=== PATIENT | female | born 1980 | race African-American/Black ===

== ENCOUNTER → 2016-12-27 | Outpatient (CLI) | payer OTHER ==
[~2016-12-27] MED LIST: PREN1CHW7 PO; TERC.4%V VAGINAL
== END ==
LOC: HPND 09:02
PROVIDERS: ATTEND Obstetrics & Gynecology
DX: O09.522 Supervision of elderly multigravida, second trimester (principal); O99.212 Obesity complicating pregnancy, second trimester; Z3A.18 18 weeks gestation of pregnancy
CPT/HCPCS: 76811

== ENCOUNTER → 2017-01-24 | Outpatient (CLI) | payer OTHER | LOC: HPND 11:03 | PROVIDERS: ATTEND Obstetrics & Gynecology | DX: O34.12 Maternal care for benign tumor of corpus uteri, second trimester (principal) | CPT/HCPCS: 76816 ==

== ENCOUNTER → 2017-03-07 | Outpatient (CLI) | payer OTHER ==
[~2017-03-07] MED LIST changes: +BAYEMIS; +GLUCTES27; +ONETOUCH ULTRAULTRA; +ONETTES4; -TERC.4%V VAGINAL
== END ==
LOC: HPND 08:42
PROVIDERS: ATTEND Obstetrics & Gynecology
DX: O34.12 Maternal care for benign tumor of corpus uteri, second trimester (principal)
CPT/HCPCS: 76816

== ENCOUNTER → 2017-04-04 | Outpatient (CLI) | payer OTHER ==
[~2017-04-04] MED LIST changes: +IBUP-232 PO; +MACR100C2 PO
== END ==
LOC: HPND 08:49
PROVIDERS: ATTEND Obstetrics & Gynecology
DX: O09.522 Supervision of elderly multigravida, second trimester (principal); O34.12 Maternal care for benign tumor of corpus uteri, second trimester; O40.2XX0 Polyhydramnios, second trimester, not applicable or unspecified
CPT/HCPCS: 76816

== ENCOUNTER 2017-04-13 06:02 | Emergency (ER) | payer OTHER ==
[~2017-04-13 06:02] MED LIST changes: -IBUP-232 PO; -MACR100C2 PO
[2017-04-13] MEDS ORDERED: LACTATED RINGER'S 1000 ML INJ 1,000 ML IV SCH (06:50)
[2017-04-13 07:00] VITALS: RESP 18
[2017-04-13] MEDS ORDERED: TERBUTALINE INJ 1 MG/ML AMP SQ PRN (07:00)
--- NOTE | 2017-04-13 07:00 | PD ---
HPI Chief Complaint Patient is a 36-year-old white female complaints of abdominal tightening and cramping pain began in the last few hours Date Seen: Apr 13, 2017 Time Seen: 06:45 Travel History International Travel<30 Days: No Contact w/Intl Traveler<30Days: No Known Affected Area: No History of Present Illness HPI 36-year-old black female G for P1 34 weeks tomorrow and [facility] and complains of abdominal tightening abdominal pain over the last few hours. Denies bleeding or leakage of fluid. heart rate tracing is reactive. Contractions seen every 5-8 minutes. Weeks Gestation: 34 Para: 1 : 4 Miscarriage: 2 History Obstetric History Obstetric History 1 vaginal delivery 2 early ABs Social History Alcohol Use: No Tobacco Use: No Substance Abuse: No Allergies-Medications (Allergen,Severity, Reaction): Coded Allergies: No Known Allergies (Unverified , 04/11/17) Home Meds Active Scripts Mey Microlet Lancets (Mey Microlet Lancets) 1 Mis Mis, 1 EA .ROUTE QID for Blood Sugar Management, #100 BOX 4 Refills Prov:Gianna Lopez 03/09/17 Glucose Blood Test Strips (Mey Contour Next Blood Test Strips) 1 Adrianna Adrianna, 1 STRIP .ROUTE QID for Blood Sugar Management, #100 STRIP 6 Refills Prov:Gianna Lopez 03/09/17 Onetouch Ultra System Kit (Onetouch Ultra System Kit) 1 Kit, 1 KIT .ROUTE DIRECTED for Blood Sugar Management, #1 KIT 0 Refills Prov:Gaby Tran 03/08/17 Onetouch Ultra Test Strips (Onetouch Ultra Test Strips) 1 Adrianna Adrianna, 1 STRIP .ROUTE DIRECTED for Blood Sugar Management, #1 BOX 0 Refills Prov:Gaby Tran 03/08/17 Vit W/ Ferric Phospha (Vitafol Gummies 3.33-0.333-34.8 mg) 1 Chw Chw, 3 TAB PO DAILY, #90 BOTTLE 11 Refills Prov:Gianna Lopez 11/30/16 Review of Systems General / Constitutional: No: Fever, Weight Gain, Chills, Other Eyes: No: Diploplia, Blurred Vision, Visual changes, Pain, Photophobia HENT: No: Headaches, Vertigo, Lightheadedness Cardiovascular: No: Irregular Rhythm, Chest Pain or Discomfort, Palpitations, Tachycardia, Syncope, Varicosities, Edema, Cyanosis Respiratory: No: Cough, Short of Breath, Other Gastrointestinal: Abdominal Pain, No: Nausea, Vomiting, Diarrhea Genitourinary: No: Decreased Urinary Output, Oliguria Musculoskeletal: No: Limited ROM, Weakness, Cramping, Edema, Pain Skin: No Rash, No Itching, No Dryness, No Lumps, No Change in Pigmentation, No Change in Nails, No Alopecia, No Lesions Neurologic: No: Weakness, Dizziness, Syncope, Focal Abnormalities, Coordination Problem, Headache, Slurred Speech, Seizures Psychiatric: No: Depression, Suicidal Ideations, Homicidal Ideation Endocrine: No: Heat Intolerance, Cold Intolerance, Polydipsia, Polyuria, Other Physical Exam Narrative GENERAL: Well-nourished, well-developed patient. SKIN: Warm and dry. HEAD: Normocephalic and atraumatic. EYES: No scleral icterus. No injection or drainage. ENT: No nasal drainage noted. Mucous membranes pink. Airway patent. NECK: Supple, trachea midline. No JVD. CARDIOVASCULAR: Regular rate and rhythm without murmurs, gallops, or rubs. RESPIRATORY: Breath sounds equal bilaterally. No accessory muscle use. BREASTS: Bilateral exam showed no masses , no retractions, no nipple discharge. ABDOMEN/GI: Abdomen soft, non-tender, bowel sounds present, no rebound, no guarding Gravid to [-34] weeks size Fundal Height: [34-] GENITOURINARY: External Genitalia: intact and normal in appearance BUS glands: [-] Cervix: [-Posterior] Dilatation: [Closed-] Effacement: [-] Thick Station: [-3] Membranes: [intact ] Uterine Contractions: [Every 5-8 minutes-] FHT's: Category: [1-] Baseline: [-133] Reactive: [-yes] Variability: [mod-] Decels: [none-] EXTREMITIES: No cyanosis or edema. BACK: Nontender without obvious deformity. No CVA tenderness. NEUROLOGICAL: Awake and alert. Motor and sensory grossly within normal limits. Five out of 5 muscle strength in all muscle groups. Normal speech. Data Data Orders Orders Vital Signs (Adult) .ON ADMISSION (04/13/17 06:50) ^ Labor Status (04/13/17 06:50) Urinalysis - C+S If Indicated (04/13/17 06:50) Lactated Ringer's 1000 Ml Inj (Lr 1000 M (04/13/17 06:50) Terbutaline Inj (Brethine Inj) (04/13/17 07:00) Fentanyl Inj (Fentanyl Inj) (04/13/17 07:00) Labs Urine dip shows large leukocyte esterase trace blood MDM Interpretation(s) Patient is 36-year-old white female at 34 weeks tomorrow [facility]. She presents complaining of abdominal pain and abdominal tightening over the last few hours. No leakage of fluid or bleeding. The contractions are seen on the monitor every 5-8 minutes. Because of seeing contractions we will IV hydrate subcutaneous terbutaline as needed per protocol and IV fentanyl 50 g. Patient's cervix is closed thick and high posterior;. urine dipstick positive for large leukocyte esterase and trace blood. Urine from lab downstairs pending at this time will probably confirm UTI and plan to treat with by mouth Macrobid for this patient Plan Plan for patient to be discharged on the increased oral fluids for hydration, Tylenol liberally for discomfort, heating pad or hot bath for symptomatic relief. Bedrest over the next 48 hours to decrease the risk of uterine activity. By mouth Macrobid for UTI Diagnosis Diagnosis: Primary Impression: UTI (urinary tract infection) in in third trimester Additional Impression: Uterine contractions during Disposition: 01 DISCHARGE HOME Condition: Stable Scripts Nitrofurantoin Monohydrate Macrocrystals (Macrobid) 100 Mg Capsule 100 MG PO BID for Infection for 7 Days, #14 CAP 0 Refills Prov: Walker Fragoso II, MD 04/13/17 Walker Fragoso II, MD Apr 13, 2017 07:00
[2017-04-13 07:41] VITALS: BP 104/55; PULSE 97
[2017-04-13] MEDS ORDERED: MACR100C2 PO (07:52)
[2017-04-13 08:17] LABS: BACTERIA, URINE OCC /hpf; BLOOD, URINE NEG (NEG); COMMENT (UR) CULTURE INDICATED; CULTURE IF INDICATED CULTURE INDICATED; GLUCOSE,URINE NEG (NEG); KETONE, URINE TRACE mg/dL (NEG); NITRITE,URINE NEG (NEG); PH, URINE 6.5 (5.0-8.5); SQUAMOUS EPITHELIAL CELL URINE 4 /hpf (0-5); URINE COLOR LIGHT-YELLOW (YELLW/STRAW)
[2017-05-05] MEDS ORDERED: ONETTES4 ×2 (13:14→13:17)
[2017-05-05] MEDS ORDERED: BAYEMIS ×2 (13:15→13:16)
== END 2017-04-13 09:30 | disposition home or self-care (01) ==
LOC: HOBED 06:02
DX: O23.43 Unspecified infection of urinary tract in pregnancy, third trimester (principal); O62.9 Abnormality of forces of labor, unspecified; Z3A.34 34 weeks gestation of pregnancy
CPT/HCPCS: 59025; 81001; 87086; 96372; 96374; 99284; J3010; J3105

== ENCOUNTER → 2017-05-02 | Outpatient (CLI) | payer OTHER ==
[~2017-05-02] MED LIST changes: +IBUP-232 PO
== END ==
LOC: HPND 08:47
PROVIDERS: ATTEND Obstetrics & Gynecology
DX: O09.523 Supervision of elderly multigravida, third trimester (principal); O34.13 Maternal care for benign tumor of corpus uteri, third trimester; Z3A.36 36 weeks gestation of pregnancy
CPT/HCPCS: 76816; 76818

== ENCOUNTER 2017-05-16 10:00 | Emergency (ER) | payer OTHER ==
[~2017-05-16 10:00] MED LIST changes: -IBUP-232 PO
--- NOTE | 2017-05-16 11:31 | PD ---
HPI Chief Complaint vaginal discharge Travel History International Travel<30 Days: No Contact w/Intl Traveler<30Days: No History of Present Illness HPI 37 y/o @38/2 weeks who presents with vaginal fluid/discharge for the past couple days. Believes she lost her mucous plug on or Monday of last week. Has endorsed some leakage of white fluid since then. Endorses back pain and lower abdominal cramping occurring irregularly. Has felt decreased movement over the past couple days as well. Coming from [facility] today where she had a BPP. Score was 8 out of 10, NST reactive, BERT 19. Patient was diagnosed with gestational diabetes mellitus based on an A1c of 6.4. Has been monitoring her blood glucose with daily logs (range from 100-140) and has been controlling with diet for the past two months. She is GBS negative. Weeks Gestation: 38 Para: 1 : 4 History Past Medical History Narrative Medical Gestational diabetes - A1C 6.4% Fibroid Past Surgical History Narrative Surgical 2015 - D&C for miscarriage; perforated uterus 2013 - D&C for miscarriage 03/2005 vaginal delivery at 40wks - 8lbs 11oz Family History Family History: Negative Social History Alcohol Use: No Tobacco Use: No Substance Abuse: No Allergies-Medications (Allergen,Severity, Reaction): Coded Allergies: No Known Allergies (Unverified , 05/02/17) Home Meds Active Scripts Onetouch Ultra Test Strips (Onetouch Ultra Test Strips) 1 Adrianna Adrianna, STRIP .ROUTE DIRECTED for Blood Sugar Management, #1 3 Refills Prov:Gaby Tran [employer] COMMISS[employer] 05/05/17 Mey Microlet Lancets (Mey Microlet Lancets) 1 Mis Mis, EA .ROUTE DIRECTED for Blood Sugar Management, #1 3 Refills Prov:Gaby Tran HEALTH COMMISSIONER 05/05/17 Mey Microlet Lancets (Mey Microlet Lancets) 1 Mis Mis, 1 EA .ROUTE QID for Blood Sugar Management, #100 BOX 4 Refills Prov:Gaby Tran HEALTH COMMISSIONER 05/05/17 Onetouch Ultra Test Strips (Onetouch Ultra Test Strips) 1 Adrianna Adrianna, 1 STRIP .ROUTE DIRECTED for Blood Sugar Management, #1 BOX 2 Refills Prov:Gaby Tran HEALTH COMMISSIONER 05/05/17 Glucose Blood Test Strips (Mey Contour Next Blood Test Strips) 1 Adrianna Adrianna, 1 STRIP .ROUTE QID for Blood Sugar Management, #100 STRIP 6 Refills Prov:Gianna LopezPawel STATONP 03/09/17 Onetouch Ultra System Kit (Onetouch Ultra System Kit) 1 Kit, 1 KIT .ROUTE DIRECTED for Blood Sugar Management, #1 KIT 0 Refills Prov:Gaby TranPawel STATONP 03/08/17 Vit W/ Ferric Phospha (Vitafol Gummies 3.33-0.333-34.8 mg) 1 Chw Chw, 3 TAB PO DAILY, #90 BOTTLE 11 Refills Prov:Gianna Lopez Jadiel STATONP 11/30/16 Physical Exam Narrative GENERAL: Well-nourished, well-developed patient. SKIN: Warm and dry. HEAD: Normocephalic and atraumatic. EYES: No scleral icterus. No injection or drainage. ENT: No nasal drainage noted. Mucous membranes pink. Airway patent. NECK: Supple, trachea midline. No JVD. CARDIOVASCULAR: Regular rate and rhythm without murmurs, gallops, or rubs. RESPIRATORY: Breath sounds equal bilaterally. No accessory muscle use. BREASTS: Bilateral exam showed no masses , no retractions, no nipple discharge. ABDOMEN/GI: Abdomen soft, non-tender, bowel sounds present, no rebound, no guarding Gravid to 38 weeks size GENITOURINARY: External Genitalia: intact and normal in appearance Cervix: Posterior Dilatation: 3 cm Effacement: 10% Station: -2 Presentation: Cephalic Membranes: Intact Uterine Contractions: Irregular FHT's: Category: 1 Baseline: 150 Reactive: Yes Variability: Moderate Decels: None EXTREMITIES: No cyanosis or edema. NEUROLOGICAL: Awake and alert. Motor and sensory grossly within normal limits. MDM Interpretation(s) 37-year-old at 38 weeks. Amnesia test negative. Contractions irregular. 3 cm dilated, 10% effaced. Gestational diabetes controlled with diet. BPP today reassuring. Category 1 heart tracing. Plan -Patient does not meet criteria for admission at this time -Advised patient to return if rupture membranes, regular painful contractions, or less than 10 movements and 2 hours -Continue to monitor blood glucose and attend follow-up care [facility] Dr. Jeter Diagnosis Diagnosis: Primary Impression: with 38 completed weeks gestation Additional Impressions: Intact amniotic membranes Gestational diabetes mellitus Disposition: 01 DISCHARGE HOME Condition: Stable Elisabeth Siu MD R1 May 16, 2017 11:31
== END 2017-05-16 11:36 | disposition home or self-care (01) ==
LOC: HOBED 10:00
DX: O24.410 Gestational diabetes mellitus in pregnancy, diet controlled (principal); Z3A.38 38 weeks gestation of pregnancy
CPT/HCPCS: 59025; 84112

== ENCOUNTER 2017-05-22 20:01 | Inpatient (IN) | payer OTHER ==
[2017-05-22] MEDS ORDERED: LACTATED RINGER'S 1000 ML INJ 1,000 ML IV PRN (20:20)
[2017-05-22 20:22] VITALS: TEMP 98.3
[2017-05-22] MEDS ORDERED: CITRIC ACID-SODIUM CITRATE LIQ 30 ML UDC PO SCH (20:30)
[2017-05-22] MEDS ORDERED: OXYTOCIN 30 UNITS-500ML PREMIX 500 ML IV ONE (20:30)
[2017-05-22] MEDS ORDERED: MINERAL OIL 10 ML VIAL TOPICAL PRN (20:30)
[2017-05-22] MEDS ORDERED: LIDOCAINE HCL 1% 50 ML VIAL I-DERMAL PRN (20:30)
[2017-05-22] MEDS: LACTATED RINGER'S 1000 ML INJ 1,000 ML IV SCH (20:30)
[2017-05-22] MEDS ORDERED: LIDOCAINE HCL 1% 50 ML VIAL INFIL PRN (20:30)
[2017-05-22] MEDS ORDERED: SODIUM CHLORID 0.9% 500 ML INJ 500 ML IV PRN (20:30)
[2017-05-22] MEDS ORDERED: SODIUM CHLOR 0.9% 1000 ML INJ 1,000 ML IV PRN (20:40)
--- NOTE | 2017-05-22 21:04 | PD ---
HPI Chief Complaint Contractions Date Seen: May 22, 2017 Travel History International Travel<30 Days: No Contact w/Intl Traveler<30Days: No Known Affected Area: No History of Present Illness HPI Patient is a 37 year old at 39-1/7 weeks gestation who presents today for contractions. Contractions started this evening and have been progressively worsening. She denies any gush or leaking of fluid or vaginal bleeding. She has been losing her "mucus plug" over the past week. Positive movement. History Past Medical History Medical History: Denies Significant Hx Obstetric History Obstetric History s/p miscarriage x 2 Past Surgical History Narrative Surgical D&C Family History Family History: Negative Social History Alcohol Use: No Tobacco Use: No Substance Abuse: No Allergies-Medications (Allergen,Severity, Reaction): Coded Allergies: No Known Allergies (Unverified , 05/19/17) Home Meds Active Scripts Onetouch Ultra Test Strips (Onetouch Ultra Test Strips) 1 Adrianna Adrianna, STRIP .ROUTE DIRECTED for Blood Sugar Management, #1 3 Refills Prov:Gaby Tran 05/05/17 Mey Microlet Lancets (Mey Microlet Lancets) 1 Mis Mis, EA .ROUTE DIRECTED for Blood Sugar Management, #1 3 Refills Prov:Gaby Tran 05/05/17 Mey Microlet Lancets (Mey Microlet Lancets) 1 Mis Mis, 1 EA .ROUTE QID for Blood Sugar Management, #100 BOX 4 Refills Prov:Gaby Tran 05/05/17 Onetouch Ultra Test Strips (Onetouch Ultra Test Strips) 1 Adrianna Adrianna, 1 STRIP .ROUTE DIRECTED for Blood Sugar Management, #1 BOX 2 Refills Prov:Gaby Tran 05/05/17 Glucose Blood Test Strips (Mey Contour Next Blood Test Strips) 1 Adrianna Adrianna, 1 STRIP .ROUTE QID for Blood Sugar Management, #100 STRIP 6 Refills Prov:Gianna Lopez 03/09/17 Onetouch Ultra System Kit (Onetouch Ultra System Kit) 1 Kit, 1 KIT .ROUTE DIRECTED for Blood Sugar Management, #1 KIT 0 Refills Prov:Gaby Tran 8/2/17 Vit W/ Ferric Phospha (Vitafol Gummies 3.33-0.333-34.8 mg) 1 Chw Chw, 3 TAB PO DAILY, #90 BOTTLE 11 Refills Prov:Gianna Lopez Jadiel WOODS 11/30/16 Review of Systems Except as stated in HPI: all other systems reviewed are Neg General / Constitutional: No: Fever, Chills Eyes: No: Visual changes HENT: No: Headaches Cardiovascular: No: Chest Pain or Discomfort Respiratory: No: Cough, Short of Breath Gastrointestinal: No: Nausea, Vomiting Genitourinary: Pelvic Pain, Discharge, No: Dysuria, Vaginal Bleeding Musculoskeletal: No: Edema Physical Exam Vital Signs Date Time Temp Pulse Resp B/P (MAP) Pulse Ox O2 Delivery O2 Flow Rate FiO2 05/22/17 20:22 98.3 Narrative GENERAL: Well-nourished, well-developed patient. SKIN: Warm and dry. HEAD: Normocephalic and atraumatic. EYES: No scleral icterus. No injection or drainage. ENT: No nasal drainage noted. Mucous membranes pink. Airway patent. NECK: Supple, trachea midline. No JVD. CARDIOVASCULAR: Regular rate and rhythm without murmurs, gallops, or rubs. RESPIRATORY: Breath sounds equal bilaterally. No accessory muscle use. ABDOMEN/GI: Abdomen soft, non-tender, bowel sounds present, no rebound, no guarding Gravid to 39 weeks size GENITOURINARY: External Genitalia: intact and normal in appearance Cervix: posterior Dilatation: 4-5 Effacement: 50 Station: -2 Presentation: vertex Membranes: intact Uterine Contractions: q2-3min FHT's: Category: II Baseline: 160 Reactive: - Variability: + Decels: occasional late decelerations EXTREMITIES: No cyanosis or edema. BACK: Nontender without obvious deformity. NEUROLOGICAL: Awake and alert. Motor and sensory grossly within normal limits. Normal speech. Data Data Vital Signs Reviewed: Yes Orders Orders Admit To Inpatient (05/22/17 ) Vital Signs (Adult) .Per protocol (05/22/17 20:20) Heart (05/22/17 20:20) Amnioinfusion (05/22/17 20:20) Urinary Catheter Management .ONCE (05/22/17 20:20) Diet Liquid (05/23/17 Breakfast) Lactated Ringer's 1000 Ml Inj (Lr 1000 M (05/22/17 21:00) Lactated Ringer's 1000 Ml Inj (Lr 1000 M (05/22/17 20:20) Sodium Chlorid 0.9% 500 Ml Inj (Ns 500 M (05/22/17 20:30) Sodium Chlor 0.9% 1000 Ml Inj (Ns 1000 M (05/22/17 20:40) Lidocaine 1% Inj (50 Ml) (Xylocaine 1% I (05/22/17 20:30) Citric Acid-Sodium Citrate Liq (Bicitra (05/22/17 20:30) Fentanyl Inj (Fentanyl Inj) (05/22/17 20:30) Fentanyl Inj (Fentanyl Inj) (05/22/17 20:30) Complete Blood Count With Diff (05/22/17 20:20) Hold Clot (05/22/17 20:20) Abo/Rh Blood Type (05/22/17 20:20) Urinalysis - C+S If Indicated (05/22/17 20:20) Resp Oxygen Non Rebreathe Mask (05/22/17 ) ^ Epidural / Intrathecal Infus (05/22/17 20:20) Oxytocin 30 Units-500ml Premix (Pitocin (05/22/17 20:30) Lidocaine 1% Inj (50 Ml) (Xylocaine 1% I (05/22/17 20:30) Light Mineral Oil (Muri-Lube Oil) (05/22/17 20:30) Comprehensive Metabolic Panel (05/22/17 20:22) Ob (2e) Additional Admit Info (05/22/17 20:24) Group B Strep: Negative Labs Laboratory Tests Test 05/22/17 20:40 MDM Medical Record Reviewed: Yes Narrative Course / MDM 37 year old at 39-1/7 weeks gestation. 1. IUP- Category II tracing, will give 1L LR bolus and continue monitoring 2. Labor- Admit for labor 3. GBS negative. dw Dr. Richmond Gage,Guillermina Beavers MD, R3 May 22, 2017 21:04
[2017-05-22 21:07] LABS: AUTOMATED NEUTROPHIL # 3.1 TH/MM3 (1.8-7.7); BASOPHIL % 0.6 % (0.0-2.0); EOSINOPHIL # 0.1 TH/MM3 (0-0.4); EOSINOPHIL % 1.5 % (0.0-4.0); HEMATOCRIT 38.1 % (35.0-46.0); HEMO FLAGS DIFF FINAL; LYMPH % 28.8 % (9.0-44.0); LYMPHOCYTE # 1.7 TH/MM3 (1.0-4.8); MEAN CELL VOLUME 84.8 FL (80.0-100.0); MEAN CORPUSCULAR HEMOGLOBIN 28.1 PG (27.0-34.0); MEAN CORPUSCULAR HGB CONC 33.2 % (32.0-36.0); NEUT % 54.1 % (16.0-70.0); PLATELET COUNT 226 TH/MM3 (150-450); RED BLOOD COUNT 4.49 MIL/MM3 (4.00-5.30); RED CELL DISTRIBUTION WIDTH 15.8 % (11.6-17.2); WHITE BLOOD COUNT 5.8 TH/MM3 (4.0-11.0)
--- NOTE | 2017-05-22 21:08 | HHI.HP ---
History & Physical H&P HPI Chief Complaint Contractions Date Seen: May 22, 2017 Travel History International Travel<30 Days: No Contact w/Intl Traveler<30Days: No Known Affected Area: No History of Present Illness HPI Patient is a 37 year old at 39-1/7 weeks gestation who presents today for contractions. Contractions started this evening and have been progressively worsening. She denies any gush or leaking of fluid or vaginal bleeding. She has been losing her "mucus plug" over the past week. Positive movement. History (Limited) History Past Medical History Medical History: Denies Significant Hx Obstetric History Obstetric History s/p miscarriage x 2 Past Surgical History Narrative Surgical D&C Family History Family History: Negative Social History Alcohol Use: No Tobacco Use: No Substance Abuse: No Allergies-Medications Allergies-Medications (Allergen,Severity, Reaction): Coded Allergies: No Known Allergies (Unverified , 05/19/17) Home Meds Active Scripts Onetouch Ultra Test Strips (Onetouch Ultra Test Strips) 1 Adrianna Adrianna, STRIP .ROUTE DIRECTED for Blood Sugar Management, #1 3 Refills Prov:Gaby Tran 05/05/17 Mey Microlet Lancets (Mey Microlet Lancets) 1 Mis Mis, EA .ROUTE DIRECTED for Blood Sugar Management, #1 3 Refills Prov:Gaby Tran 05/05/17 Mey Microlet Lancets (Mey Microlet Lancets) 1 Mis Mis, 1 EA .ROUTE QID for Blood Sugar Management, #100 BOX 4 Refills Prov:Gaby Tran 05/05/17 Onetouch Ultra Test Strips (Onetouch Ultra Test Strips) 1 Adrianna Adrianna, 1 STRIP .ROUTE DIRECTED for Blood Sugar Management, #1 BOX 2 Refills Prov:Gaby Tran 05/05/17 Glucose Blood Test Strips (Mey Contour Next Blood Test Strips) 1 Adrianna Adrianna, 1 STRIP .ROUTE QID for Blood Sugar Management, #100 STRIP 6 Refills Prov:Gianna Lopez 03/09/17 Onetouch Ultra System Kit (Onetouch Ultra System Kit) 1 Kit, 1 KIT .ROUTE DIRECTED for Blood Sugar Management, #1 KIT 0 Refills Prov:Gaby Tran 03/08/17 Vit W/ Ferric Phospha (Vitafol Gummies 3.33-0.333-34.8 mg) 1 Chw Chw, 3 TAB PO DAILY, #90 BOTTLE 11 Refills Prov:Gianna Lopez [facility] 11/30/16 ROS Review of Systems Except as stated in HPI: all other systems reviewed are Neg General / Constitutional: No: Fever, Chills Eyes: No: Visual changes HENT: No: Headaches Cardiovascular: No: Chest Pain or Discomfort Respiratory: No: Cough, Short of Breath Gastrointestinal: No: Nausea, Vomiting Genitourinary: Pelvic Pain, Discharge, No: Dysuria, Vaginal Bleeding Musculoskeletal: No: Edema Physical Exam Physical Exam Vital Signs Date Time Temp Pulse Resp B/P (MAP) Pulse Ox O2 Delivery O2 Flow Rate FiO2 05/22/17 20:22 98.3 Narrative GENERAL: Well-nourished, well-developed patient. SKIN: Warm and dry. HEAD: Normocephalic and atraumatic. EYES: No scleral icterus. No injection or drainage. ENT: No nasal drainage noted. Mucous membranes pink. Airway patent. NECK: Supple, trachea midline. No JVD. CARDIOVASCULAR: Regular rate and rhythm without murmurs, gallops, or rubs. RESPIRATORY: Breath sounds equal bilaterally. No accessory muscle use. ABDOMEN/GI: Abdomen soft, non-tender, bowel sounds present, no rebound, no guarding Gravid to 39 weeks size GENITOURINARY: External Genitalia: intact and normal in appearance Cervix: posterior Dilatation: 4-5 Effacement: 50 Station: -2 Presentation: vertex Membranes: intact Uterine Contractions: q2-3min FHT's: Category: II Baseline: 160 Reactive: - Variability: + Decels: occasional late decelerations EXTREMITIES: No cyanosis or edema. BACK: Nontender without obvious deformity. NEUROLOGICAL: Awake and alert. Motor and sensory grossly within normal limits. Normal speech. Data Data Data Vital Signs Reviewed: Yes Orders Orders Admit To Inpatient (05/22/17 ) Vital Signs (Adult) .Per protocol (05/22/17 20:20) Heart (05/22/17 20:20) Amnioinfusion (05/22/17 20:20) Urinary Catheter Management .ONCE (05/22/17 20:20) Diet Liquid (05/23/17 Breakfast) Lactated Ringer's 1000 Ml Inj (Lr 1000 M (05/22/17 21:00) Lactated Ringer's 1000 Ml Inj (Lr 1000 M (05/22/17 20:20) Sodium Chlorid 0.9% 500 Ml Inj (Ns 500 M (05/22/17 20:30) Sodium Chlor 0.9% 1000 Ml Inj (Ns 1000 M (05/22/17 20:40) Lidocaine 1% Inj (50 Ml) (Xylocaine 1% I (05/22/17 20:30) Citric Acid-Sodium Citrate Liq (Bicitra (05/22/17 20:30) Fentanyl Inj (Fentanyl Inj) (05/22/17 20:30) Fentanyl Inj (Fentanyl Inj) (05/22/17 20:30) Complete Blood Count With Diff (05/22/17 20:20) Hold Clot (05/22/17 20:20) Abo/Rh Blood Type (05/22/17 20:20) Urinalysis - C+S If Indicated (05/22/17 20:20) Resp Oxygen Non Rebreathe Mask (05/22/17 ) ^ Epidural / Intrathecal Infus (05/22/17 20:20) Oxytocin 30 Units-500ml Premix (Pitocin (05/22/17 20:30) Lidocaine 1% Inj (50 Ml) (Xylocaine 1% I (05/22/17 20:30) Light Mineral Oil (Muri-Lube Oil) (05/22/17 20:30) Comprehensive Metabolic Panel (05/22/17 20:22) Ob (2e) Additional Admit Info (05/22/17 20:24) Group B Strep: Negative Labs Laboratory Tests Test 05/22/17 20:40 MDM MDM Medical Record Reviewed: Yes Narrative Course / MDM 37 year old at 39-1/7 weeks gestation. 1. IUP- Category II tracing, will give 1L LR bolus and continue monitoring 2. Labor- Admit for labor 3. GBS negative. dw Guillermina Ashton MD, R3 May 22, 2017 21:08
[2017-05-22] MEDS ORDERED: TERBUTALINE INJ 1 MG/ML AMP ONE (21:15)
[2017-05-22 21:19] VITALS: BP 115/64; PULSE 90
[2017-05-22 21:19] LABS: ANION GAP 9 MEQ/L (5-15); AST (GOT) 12 U/L (15-37); BLOOD UREA NITROGEN 6 MG/DL (7-18); CHLORIDE 104 MEQ/L (98-107); GLOMERULAR FILTRATION RATE 95 ML/MIN (>89); POTASSIUM 3.9 MEQ/L (3.5-5.1); SODIUM (NA) 137 MEQ/L (136-145)
[2017-05-22 21:20] VITALS: RESP 18
[2017-05-22 21:20] LABS: ALT (GPT) 16 U/L (10-53)
[2017-05-22 21:23] LABS: ALKALINE PHOSPHATASE 253 U/L (45-117); TOTAL BILIRUBIN ADULT 0.4 MG/DL (0.2-1.0)
[2017-05-22 22:00] VITALS: RESP 20
[2017-05-22 23:30] VITALS: RESP 20
[2017-05-23] VITALS (27 sets, daily range): BP systolic 102–144; BP diastolic 47–90; PULSE 75–100; RESP 18–20; TEMP 98.2–98.7; O2SAT 99
[2017-05-23] MEDS ORDERED: OXYTOCIN 30 UNITS-500ML PREMIX 500 ML IV SCH ×2 (01:30→04:15)
[2017-05-23] MEDS ORDERED: fentaNYL 2MCG-BUPIV 0.125% INJ 100 ML ONE (02:19)
[2017-05-23] MEDS: LACTATED RINGER'S 1000 ML INJ 1,000 ML IV SCH ×2 (03:10→13:00)
[2017-05-23] MEDS ORDERED: ePHEDrine/NS 25 MG/5 ML SYR ONE (03:19)
--- NOTE | 2017-05-23 04:00 | PD.OB.DELI ---
Weeks gestation: 39 Gest age assessed date: May 23, 2017 Gest age assessed time: 20:12 Pt started active labor?: Yes Medical induction of labor?: No Artificial rupture of membrane: Yes Anesthesia: Epidural Episiotomy: None Vaginal Delivery: Normal Presentation: Occiput anterior, Compound Nuchal Cord: None Delayed cord clamping (45 sec): Yes : Male Delivery date: May 23, 2017 Delivery time: 03:43 One Minute : 8 Five Minute : 8 Weight: 9lb 9oz Placenta: Spontaneous delivery Laceration: No lacerations Estimated blood loss: 250 Additional Information supervised by Dr. Fragoso and senior Obed More MD, R1 May 23, 2017 04:00
[2017-05-23 04:11] LABS: BLOOD GAS O2 HGB SATURATION 17 % (90-100); CORD BLOOD GAS HCO3 25 mmol/L (21-29); CORD BLOOD GAS PCO2 71 mmHG (34-78); CORD BLOOD GAS PH 7.16 (7.14-7.42); CORD BLOOD GAS PO2 15 mmHG (3.0-40.0); DRAW SITE CORD BLOOD; STAT YES
[2017-05-23] MEDS ORDERED: ACETAMINOPHEN 325 MG TAB PO PRN (04:15)
[2017-05-23] MEDS ORDERED: SODIUM CHLORIDE 0.9% FLUSH 10 ML FLUSH IV FLUSH PRN (04:15)
[2017-05-23] MEDS ORDERED: DOCUSATE SODIUM 50 MG/SENNA 8.6 MG TAB PO PRN (04:15)
[2017-05-23] MEDS ORDERED: oxyCODONE/ACETAMINOPHEN 5 MG/325 MG TAB PO PRN ×2 (04:15)
[2017-05-23] MEDS ORDERED: ALUMINUM/MAGNESIUM/SIMETH 30 ML CUP PO PRN (04:15)
[2017-05-23] MEDS ORDERED: BENZOCAINE 20% TOPICAL SPRAY 60 ML CAN TOPICAL PRN (04:15)
[2017-05-23] MEDS ORDERED: ONDANSETRON ODT 4 MG TAB PO PRN (04:15)
[2017-05-23] MEDS ORDERED: WITCH HAZEL 50%/GLYCERIN 12.5% 40 PAD JAR TOPICAL PRN (04:15)
[2017-05-23] MEDS ORDERED: ZOLPIDEM TARTRATE 5 MG TAB PO PRN (04:15)
[2017-05-23] MEDS: IBUPROFEN 600 MG TAB PO PRN ×2 (08:17→22:47)
--- NOTE | 2017-05-23 09:01 | HHI.OB ---
Subjective Remarks 37 year old female s/p at 39\7 wks gestation, PPD0. AFVSS. Patient reports she is feeling well. Bleeding is decreasing and pain is well- controlled. She is breast feeding and bonding well with baby. Ambulating without difficulties. She is tolerating a diet without nausea or vomiting. She has not had a bowel movement. She has not passed gas. Denies chest pain, dysuria , shortness of breath, or calf pain. Objective Vitals/I&O Vital Signs Date Time Temp Pulse Resp B/P (MAP) Pulse Ox O2 Delivery O2 Flow Rate FiO2 05/23/17 05:15 82 05/23/17 05:15 133/84 (100) 05/23/17 05:01 111/60 (77) 05/23/17 04:45 75 18 05/23/17 04:45 139/70 (93) 05/23/17 04:31 78 05/23/17 04:31 123/64 (83) 05/23/17 04:23 18 05/23/17 04:15 98.7 05/23/17 04:15 18 05/23/17 04:15 119/74 (89) 05/23/17 04:00 104/90 (95) 05/23/17 03:45 93 05/23/17 03:30 118/53 (74) 05/23/17 03:19 102/47 (65) 05/23/17 03:19 82 05/23/17 03:17 85 05/23/17 03:10 18 05/23/17 03:04 80 127/62 (83) 05/23/17 02:57 132/63 (86) 05/23/17 02:54 136/72 (93) 05/23/17 02:51 134/67 (89) 05/23/17 02:48 136/75 (95) 05/23/17 02:47 18 05/23/17 02:46 114/60 (78) 05/23/17 02:42 133/75 (94) 05/23/17 02:42 99 05/23/17 02:40 100 05/23/17 02:39 142/80 (100) 05/23/17 02:29 20 05/23/17 02:29 98.7 05/23/17 02:25 92 144/80 (101) 05/23/17 00:45 20 05/23/17 00:45 98.4 05/23/17 00:35 89 113/55 (74) 05/22/17 23:30 20 05/22/17 22:00 20 05/22/17 21:39 18 05/22/17 21:20 18 05/22/17 21:19 90 115/64 (81) 05/22/17 20:22 98.3 Objective Remarks GENERAL: Well-nourished, well-developed patient. CARDIOVASCULAR: Regular rate and rhythm without murmurs, gallops, or rubs. RESPIRATORY: Breath sounds equal bilaterally. No accessory muscle use. ABDOMEN/GI: Abdomen soft, non-tender. Fundus: Firm, non-tender at umbilicus. GENITOURINARY: Light to moderate bleeding. EXTREMITIES: No cyanosis or edema, non-tender, without signs of DVT. Medications and IVs Current Medications Medications (Trade) Dose Ordered Sig/Laz Route Start Time Stop Time Status Last Admin Lactated Ringer's 1,000 ml @ 125 mls/hr Q8H IV 05/22/17 21:00 05/23/17 03:10 Lactated Ringer's 1,000 ml @ 3,000 mls/hr Q20M PRN IV 05/22/17 20:20 05/23/17 03:09 Sodium Chloride 500 ml @ 1,000 mls/hr ONCE PRN IV 05/22/17 20:30 06/11/17 20:29 Sodium Chloride 1,000 ml @ 100 mls/hr Q10H PRN IV 05/22/17 20:40 (Xylocaine 1% Inj (50 ml)) 0.1 ml UNSCH X1 PRN I-DERMAL 05/22/17 20:30 05/25/17 20:29 (Bicitra Liq) 30 ml KEYBOARDING CLERK PO 05/22/17 20:30 05/26/17 20:29 (fentaNYL INJ) 50 mcg Q1H PRN IV PUSH 05/22/17 20:30 (fentaNYL INJ) 100 mcg Q1H PRN IV PUSH 05/22/17 20:30 05/22/17 20:51 (Xylocaine 1% Inj (50 ml)) 10 ml UNSCH X1 PRN INFIL 05/22/17 20:30 05/24/17 20:29 (Muri-Lube Oil) 10 ml UNSCH PRN TOPICAL 05/22/17 20:30 (NS Flush) 2 ml BID IV FLUSH 05/23/17 09:00 (NS Flush) 2 ml UNSCH PRN IV FLUSH 05/23/17 04:15 Oxytocin 500 ml @ 100 mls/hr CONTINUOUS IV 05/23/17 04:15 05/23/17 09:14 (Tylenol) 650 mg Q4H PRN PO 05/23/17 04:15 (Motrin) 600 mg Q6H PRN PO 05/23/17 04:15 05/23/17 08:17 (Percocet 5-325 Mg) 1 tab Q4H PRN PO 05/23/17 04:15 (Percocet 5-325 Mg) 2 tab Q4H PRN PO 05/23/17 04:15 (Americaine 20% Top Spr) 1 spray Q4H PRN TOPICAL 05/23/17 04:15 (Tucks Pads) 1 applic QID PRN TOPICAL 05/23/17 04:15 (Ashlee-Colace) 2 tab Q12H PRN PO 05/23/17 04:15 (Ambien) 5 mg HS PRN PO 05/23/17 04:15 (M-M-R Ii Inj) 0.5 ml ONCE ONCE SQ 05/23/17 16:00 05/23/17 16:01 (Boostrix Inj) 0.5 ml ONCE ONCE IM 05/23/17 16:00 05/23/17 16:01 (Mag-Al Plus Susp Liq) 15 ml Q8H PRN PO 05/23/17 04:15 (Zofran Odt) 4 mg Q6H PRN PO 05/23/17 04:15 Assessment/Plan Assessment and Plan 37yo female s/p , PPD0 - AFVSS - Continue routine care - Motrin PRN pain - Encourage OOB - Pelvic rest x 6 wks. - Contraception: Would like depo shot after six weeks - Anticipate D/C tomorrow Kinjal Bo MD R1 May 23, 2017 09:01
[2017-05-23] MEDS ORDERED: DIPHTH/TETANUS/ACEL PERTUSSIS (BOOSTER) 0.5 ML VIAL/PFS IM ONE (16:00)
[2017-05-23] MEDS ORDERED: MEASLES, MUMPS, RUBELLA VACCINE 0.5 ML VIAL SQ ONE (16:00)
[2017-05-23] MEDS: SODIUM CHLORIDE 0.9% FLUSH 10 ML FLUSH IV FLUSH SCH (16:30)
[2017-05-24] MEDS ORDERED: IBUP-232 PO (07:04)
--- NOTE | 2017-05-24 07:04 | HHI.DCPOC ---
Discharge Care Plan Diagnosis: (1) Normal vaginal delivery Report Symptoms to Your Doctor -Temperature above 100.5 degrees -Redness, of incision or excessive or foul smelling drainage -Unusual pain or calf pain -Increased vaginal bleeding -Painful or difficulty urinating -Feelings of extreme sadness or anxiety after 2 weeks Goals to Promote Your Health * To prevent worsening of your condition and complications * To maintain your health at the optimal level Directions to Meet Your Goals Take your medications as prescribed Follow your dietary instruction Follow activity as directed Ensure plenty of rest for recovery Drink fluids for hydration Keep your appointments as scheduled Take your immunizations and boosters as scheduled If your symptoms worsen call your PCP, if no PCP go to Urgent Care Center or Emergency Room Smoking is Dangerous to Your Health. Avoid second hand smoke Call the 24-hour crisis hotline for domestic abuse at Mani Bryant MD R2 May 24, 2017 07:04
--- NOTE | 2017-05-24 07:09 | HHI.OB ---
Subjective Remarks 37 year old female s/p at 39\7 wks gestation, PPD1. AFVSS. Patient reports she is feeling well. Bleeding is decreasing and pain is well- controlled. She is breast feeding and bonding well with baby. Ambulating without difficulties. She is tolerating a diet without nausea or vomiting. She has not had a bowel movement. She has not passed gas. Denies chest pain, dysuria , shortness of breath, or calf pain. (Kinjal Bo MD R1) Objective Vitals/I&O Vital Signs Date Time Temp Pulse Resp B/P (MAP) Pulse Ox O2 Delivery O2 Flow Rate FiO2 05/23/17 20:00 98.5 91 20 109/65 (80) 99 05/23/17 08:30 80 18 118/72 (87) 05/23/17 08:30 98.2 Objective Remarks GENERAL: Well-nourished, well-developed patient. CARDIOVASCULAR: Regular rate and rhythm without murmurs, gallops, or rubs. RESPIRATORY: Breath sounds equal bilaterally. No accessory muscle use. ABDOMEN/GI: Abdomen soft, non-tender. Fundus: Firm, non-tender at umbilicus. GENITOURINARY: Light to moderate bleeding. EXTREMITIES: No cyanosis or edema, non-tender, without signs of DVT. Medications and IVs Current Medications Medications (Trade) Dose Ordered Sig/Laz Route Start Time Stop Time Status Last Admin Lactated Ringer's 1,000 ml @ 125 mls/hr Q8H IV 05/22/17 21:00 05/23/17 03:10 Lactated Ringer's 1,000 ml @ 3,000 mls/hr Q20M PRN IV 05/22/17 20:20 05/23/17 03:09 Sodium Chloride 500 ml @ 1,000 mls/hr ONCE PRN IV 05/22/17 20:30 06/11/17 20:29 Sodium Chloride 1,000 ml @ 100 mls/hr Q10H PRN IV 05/22/17 20:40 (Xylocaine 1% Inj (50 ml)) 0.1 ml UNSCH X1 PRN I-DERMAL 05/22/17 20:30 05/25/17 20:29 (Bicitra Liq) 30 ml INDEPENDENT VIDEO PRODUCER PO 05/22/17 20:30 05/26/17 20:29 (fentaNYL INJ) 50 mcg Q1H PRN IV PUSH 05/22/17 20:30 (fentaNYL INJ) 100 mcg Q1H PRN IV PUSH 05/22/17 20:30 05/22/17 20:51 (Xylocaine 1% Inj (50 ml)) 10 ml UNSCH X1 PRN INFIL 05/22/17 20:30 05/24/17 20:29 (Muri-Lube Oil) 10 ml UNSCH PRN TOPICAL 05/22/17 20:30 (NS Flush) 2 ml BID IV FLUSH 05/23/17 09:00 05/23/17 16:30 (NS Flush) 2 ml UNSCH PRN IV FLUSH 05/23/17 04:15 (Tylenol) 650 mg Q4H PRN PO 05/23/17 04:15 (Motrin) 600 mg Q6H PRN PO 05/23/17 04:15 05/23/17 22:47 (Percocet 5-325 Mg) 1 tab Q4H PRN PO 05/23/17 04:15 (Percocet 5-325 Mg) 2 tab Q4H PRN PO 05/23/17 04:15 (Americaine 20% Top Spr) 1 spray Q4H PRN TOPICAL 05/23/17 04:15 (Tucks Pads) 1 applic QID PRN TOPICAL 05/23/17 04:15 (Ashlee-Colace) 2 tab Q12H PRN PO 05/23/17 04:15 (Ambien) 5 mg HS PRN PO 05/23/17 04:15 (Mag-Al Plus Susp Liq) 15 ml Q8H PRN PO 05/23/17 04:15 (Zofran Odt) 4 mg Q6H PRN PO 05/23/17 04:15 (Kinjal Bo MD R1) Assessment/Plan Assessment and Plan 37yo female s/p , PPD1 - AFVSS - Motrin PRN pain - Encourage OOB - Pelvic rest x 6 wks. - Contraception: Would like depo shot after six weeks - Anticipate D/C today (Kinjal Bo MD R1) Attending Attestation I discussed pt with residents on morning rounds. Agree with plan of care. (Tabatha Mullins MD) Kinjal Bo MD R1 May 24, 2017 07:09 Tabatha Mullins MD May 24, 2017 09:47
[2017-05-24 07:40] VITALS: BP 113/69; PULSE 82; RESP 20; TEMP 98.2
[2017-05-24] MEDS: SODIUM CHLORIDE 0.9% FLUSH 10 ML FLUSH IV FLUSH SCH (09:00)
[2017-05-24] MEDS: LACTATED RINGER'S 1000 ML INJ 1,000 ML IV SCH (10:13)
[2017-05-24] MEDS ORDERED: INFLUENZA VIRUS VACCINE (QUADRIVALENT) 0.5 ML SYR IM ONE (10:47)
[2017-05-24] MEDS: IBUPROFEN 600 MG TAB PO PRN (10:59)
== END 2017-05-24 13:41 | disposition home or self-care (01) | DRG 775 ==
LOC: HOBED 20:01 → H2EB 20:25 → H1EA 05-23 06:18
PROVIDERS: ADMIT Obstetrics & Gynecology Maternal & Fetal Medicine; ATTEND Obstetrics & Gynecology Maternal & Fetal Medicine
PROC: 10907ZC Drainage of Amniotic Fluid, Therapeutic from Products of Conception, Via Natural or Artificial Opening (ICD-10-PCS; principal; 2017-05-23)
PROC: 10E0XZZ Delivery of Products of Conception, External Approach (ICD-10-PCS; 2017-05-23)
DX: O76 Abnormality in fetal heart rate and rhythm complicating labor and delivery (principal); Z23 Encounter for immunization; Z37.0 Single live birth; Z3A.39 39 weeks gestation of pregnancy
CPT/HCPCS: 80053; 82805; 85025; 86900; 86901; 90686; 90715; J2590; J3010; J3105; J7120; Q2038

== ENCOUNTER 2017-05-29 12:49 | Inpatient (IN) | payer OTHER ==
[~2017-05-29] VITALS: Ht 365.8 cm; Wt 97.0 kg
[2017-05-29] VITALS (30 sets, daily range): BP systolic 136–171; BP diastolic 77–95; PULSE 68–84; RESP 18; TEMP 97.9; O2SAT 98–100
[~2017-05-29 12:49] MED LIST changes: -BAYEMIS; -GLUCTES27; +IBUP-232 PO; -ONETOUCH ULTRAULTRA; -ONETTES4
--- NOTE | 2017-05-29 14:31 | PD ---
HPI Travel History International Travel<30 Days: No Contact w/Intl Traveler<30Days: No (Kinjal Bo MD R1) History of Present Illness HPI 37 yr old F s/p @ 39/7 on 05/23, who presents to the ED for 1 day hx of severe SÁNCHEZ, dizziness, and scotomata. She describes SÁNCHEZ as constant, throbbing , pain located in frontal region. She has tried Ibuprofen with mild relief. She also complains of 2 day hx of left leg swelling that has improved slightly and moderate, cramping diffuse abdominal pain. She endorses mid-sternum, intermittent chest pain that occur simultaneously with the abdominal pain. Pain is worse when laying on her left side. She reports that she has mild vaginal bleeding that has improved since discharge from last week. She has no hx of preeclampsia or HTN. She denies N/V, fevers, diarrhea, and dysuria. Blood pressures in ED have been elevated at 157-159/88. (Kinjal Bo MD) History Past Medical History Medical History: Denies Significant Hx (Kinjal Bo MD) Obstetric History Obstetric History s/p miscarriage x 2 (Kinjal Bo MD) Past Surgical History Narrative Surgical D&C (Kinjal Bo MD) Family History Family History: Negative (Kinjal Bo MD) Social History Alcohol Use: No Tobacco Use: No Substance Abuse: No (Kinjal Bo MD) Allergies-Medications (Allergen,Severity, Reaction): Coded Allergies: No Known Allergies (Unverified , 05/19/17) Home Meds Active Scripts Ibuprofen (Ibuprofen) 600 Mg Tab, 600 MG PO Q6H Y for CRAMPING, #30 TAB Prov:Mani Bryant MD R2 05/24/17 Vit W/ Ferric Phospha (Vitafol Gummies 3.33-0.333-34.8 mg) 1 Chw Chw, 3 TAB PO DAILY, #90 BOTTLE 11 Refills Prov:Gianna Lopez 11/30/16 Discontinued Scripts Onetouch Ultra Test Strips (Onetouch Ultra Test Strips) 1 Adrianna Adrianna, STRIP .ROUTE DIRECTED for Blood Sugar Management, #1 3 Refills Prov:Gaby Tran PEDIATRICS PHYSICIAN 05/05/17 Mey Microlet Lancets (Mey Microlet Lancets) 1 Mis Mis, EA .ROUTE DIRECTED for Blood Sugar Management, #1 3 Refills Prov:Gaby Tran PEDIATRICS PHYSICIAN 05/05/17 Mey Microlet Lancets (Mey Microlet Lancets) 1 Mis Mis, 1 EA .ROUTE QID for Blood Sugar Management, #100 BOX 4 Refills Prov:Gaby Tran PEDIATRICS PHYSICIAN 05/05/17 Onetouch Ultra Test Strips (Onetouch Ultra Test Strips) 1 Adrianna Adrianna, 1 STRIP .ROUTE DIRECTED for Blood Sugar Management, #1 BOX 2 Refills Prov:Geovani Tranintsofya Naranjo PEDIATRICS PHYSICIAN 05/05/17 Glucose Blood Test Strips (Mey Contour Next Blood Test Strips) 1 Adrianna Adrianna, 1 STRIP .ROUTE QID for Blood Sugar Management, #100 STRIP 6 Refills Prov:Gianna LopezP 03/09/17 Onetouch Ultra System Kit (Onetouch Ultra System Kit) 1 Kit, 1 KIT .ROUTE DIRECTED for Blood Sugar Management, #1 KIT 0 Refills Prov:Gaby Tran PEDIATRICS PHYSICIAN 03/08/17 Review of Systems Except as stated in HPI: all other systems reviewed are Neg (Kinjal Bo MD R1) Physical Exam Narrative GENERAL: Well-nourished, well-developed patient. SKIN: Warm and dry. HEAD: Normocephalic and atraumatic. EYES: No scleral icterus. No injection or drainage. ENT: No nasal drainage noted. Mucous membranes pink. Airway patent. NECK: Supple, trachea midline. No JVD. CARDIOVASCULAR: Regular rate and rhythm without murmurs, gallops, or rubs. RESPIRATORY: Breath sounds equal bilaterally. No accessory muscle use. ABDOMEN/GI: Abdomen soft, diffuse tenderness, bowel sounds present, no rebound, no guarding EXTREMITIES: 1+ edema in Left lower extremity BACK: Nontender without obvious deformity. No CVA tenderness. NEUROLOGICAL: Awake and alert. Motor and sensory grossly within normal limits. (Kinjal Bo MD R1) Data Data Vital Signs Reviewed: Yes Orders Orders Vital Signs (Adult) .ON ADMISSION (05/29/17 14:06) ^ Hydration (05/29/17 14:06) Urinalysis - C+S If Indicated (05/29/17 14:17) Cbc No Diff, Includes Plts (05/29/17 14:17) Comprehensive Metabolic Panel (05/29/17 14:17) Uric Acid (05/29/17 14:17) (Kinjal Bo MD R1) MDM Narrative Course / MDM 37 yr old F s/p @ 39/7 on 05/23, who presents to the ED for 1 day hx of severe SÁNCHEZ, dizziness, and scotomata. 1. preeclampsia w/ severe features -CBC w/ diff wnl -UA neg for protein -CMP-mildly elevated AST and ALTs -Uric acid wnl -Admit to L& D -Started Mg 4g/hr bolus, 2g/hr thereafter -Lipase, ammonia, and hepatitis panel ordered -Repeat LFTs and CBC in [address] Bryant and Dr. Jeter (Kinjal Bo MD R1) Collaborating MD Comments Patient seen and evaluated with residents Will admit for magnesium sulfate, blood pressure control, and monitoring of elevated liver enzymes pre-eclampsia with severe features Workup for hepatitis (Dania Jeter MD) Kinjal Bo MD R1 May 29, 2017 14:31 Dania Jeter MD May 29, 2017 17:48
[2017-05-29 15:35] LABS: HEMATOCRIT 33.8 % (35.0-46.0); MEAN CELL VOLUME 85.7 FL (80.0-100.0); MEAN CORPUSCULAR HEMOGLOBIN 28.3 PG (27.0-34.0); PLATELET COUNT 223 TH/MM3 (150-450); RED BLOOD COUNT 3.95 MIL/MM3 (4.00-5.30); RED CELL DISTRIBUTION WIDTH 15.6 % (11.6-17.2); REVIEW FLAG FINAL; WHITE BLOOD COUNT 6.5 TH/MM3 (4.0-11.0)
[2017-05-29 15:35] LABS: BLOOD, URINE TRACE (NEG); COMMENT (UR) CULT NOT INDICATED; CULTURE IF INDICATED CULT NOT INDICATED; GLUCOSE,URINE NEG (NEG); KETONE, URINE NEG (NEG); MUCUS URINE FEW /lpf (OCC); NITRITE,URINE NEG (NEG); PH, URINE 7.5 (5.0-8.5); URINE COLOR LIGHT-YELLOW (YELLW/STRAW)
[2017-05-29 15:59] LABS: ANION GAP 8 MEQ/L (5-15); AST (GOT) 168 U/L (15-37); BICARBONATE 25.1 MEQ/L (21.0-32.0); BLOOD UREA NITROGEN 10 MG/DL (7-18); CHLORIDE 108 MEQ/L (98-107); GLOMERULAR FILTRATION RATE 111 ML/MIN (>89); POTASSIUM 3.7 MEQ/L (3.5-5.1); SODIUM (NA) 141 MEQ/L (136-145); URIC ACID 5.4 MG/DL (2.6-6.0)
[2017-05-29 16:02] LABS: ALKALINE PHOSPHATASE 173 U/L (45-117); ALT (GPT) 265 U/L (10-53); TOTAL BILIRUBIN ADULT 0.4 MG/DL (0.2-1.0)
[2017-05-29] MEDS ORDERED: MAGNESIUM SULFATE 40 GM PREMIX 1,000 ML IV SCH (16:11)
[2017-05-29] MEDS ORDERED: MAGNESIUM SULFATE 4 GM PREMIX 100 ML IV ONE (16:15)
[2017-05-29] MEDS ORDERED: DOCUSATE SODIUM 100 MG CAP PO PRN (16:15)
[2017-05-29] MEDS ORDERED: CALCIUM GLUCONATE 10% 1 GM/10 ML VIAL IV PUSH PRN (16:15)
[2017-05-29] MEDS ORDERED: SODIUM CHLORIDE 0.9% FLUSH 5 ML FLUSH IV FLUSH PRN (16:15)
[2017-05-29] MEDS ORDERED: ZOLPIDEM TARTRATE 5 MG TAB PO PRN (16:15)
--- NOTE | 2017-05-29 16:23 | HHI.HP ---
History & Physical H&P HPI Travel History International Travel<30 Days: No Contact w/Intl Traveler<30Days: No History of Present Illness HPI 37 yr old F s/p @ 39/7 on 05/23, who presents to the ED for 1 day hx of severe SÁNCHEZ, dizziness, and scotomata. She describes SÁNCHEZ as constant, throbbing , pain located in frontal region. She has tried Ibuprofen with mild relief. She also complains of 2 day hx of left leg swelling that has improved slightly and moderate, cramping diffuse abdominal pain. She endorses mid-sternum, intermittent chest pain that occur simultaneously with the abdominal pain. Pain is worse when laying on her left side. She reports that she has mild vaginal bleeding that has improved since discharge from last week. She has no hx of preeclampsia or HTN. She denies N/V, fevers, diarrhea, and dysuria. Blood pressures in ED have been elevated at 157-159/88. History (Limited) History Past Medical History Medical History: Denies Significant Hx Obstetric History Obstetric History s/p miscarriage x 2 Past Surgical History Narrative Surgical D&C Family History Family History: Negative Social History Alcohol Use: No Tobacco Use: No Substance Abuse: No Allergies-Medications Allergies-Medications (Allergen,Severity, Reaction): Coded Allergies: No Known Allergies (Unverified , 05/19/17) Home Meds Active Scripts Ibuprofen (Ibuprofen) 600 Mg Tab, 600 MG PO Q6H Y for CRAMPING, #30 TAB Prov:Mani Bryant MD R2 05/24/17 Vit W/ Ferric Phospha (Vitafol Gummies 3.33-0.333-34.8 mg) 1 Chw Chw, 3 TAB PO DAILY, #90 BOTTLE 11 Refills Prov:Gianna Lopez 11/30/16 Discontinued Scripts Onetouch Ultra Test Strips (Onetouch Ultra Test Strips) 1 Adrianna Adrianna, STRIP .ROUTE DIRECTED for Blood Sugar Management, #1 3 Refills Prov:Gaby TranP 05/05/17 Mey Microlet Lancets (Mey Microlet Lancets) 1 Mis Mis, EA .ROUTE DIRECTED for Blood Sugar Management, #1 3 Refills Prov:Gaby TranP 05/05/17 Mey Microlet Lancets (Mey Microlet Lancets) 1 Mis Mis, 1 EA .ROUTE QID for Blood Sugar Management, #100 BOX 4 Refills Prov:Gaby Tran [facility] 05/05/17 Onetouch Ultra Test Strips (Onetouch Ultra Test Strips) 1 Adrianna Adrianna, 1 STRIP .ROUTE DIRECTED for Blood Sugar Management, #1 BOX 2 Refills Prov:Gaby Tran [facility] 05/05/17 Glucose Blood Test Strips (Mey Contour Next Blood Test Strips) 1 Adrianna Adrianna, 1 STRIP .ROUTE QID for Blood Sugar Management, #100 STRIP 6 Refills Prov:Gianna Lopez [facility] 03/09/17 Onetouch Ultra System Kit (Onetouch Ultra System Kit) 1 Kit, 1 KIT .ROUTE DIRECTED for Blood Sugar Management, #1 KIT 0 Refills Prov:Gaby Tran [facility] 03/08/17 ROS Review of Systems Except as stated in HPI: all other systems reviewed are Neg Physical Exam Physical Exam Narrative GENERAL: Well-nourished, well-developed patient. SKIN: Warm and dry. HEAD: Normocephalic and atraumatic. EYES: No scleral icterus. No injection or drainage. ENT: No nasal drainage noted. Mucous membranes pink. Airway patent. NECK: Supple, trachea midline. No JVD. CARDIOVASCULAR: Regular rate and rhythm without murmurs, gallops, or rubs. RESPIRATORY: Breath sounds equal bilaterally. No accessory muscle use. ABDOMEN/GI: Abdomen soft, diffuse tenderness, bowel sounds present, no rebound, no guarding EXTREMITIES: 1+ edema in Left lower extremity BACK: Nontender without obvious deformity. No CVA tenderness. NEUROLOGICAL: Awake and alert. Motor and sensory grossly within normal limits. Data Data Data Vital Signs Reviewed: Yes Orders Orders Vital Signs (Adult) .ON ADMISSION (05/29/17 14:06) ^ Hydration (05/29/17 14:06) Urinalysis - C+S If Indicated (05/29/17 14:17) Cbc No Diff, Includes Plts (05/29/17 14:17) Comprehensive Metabolic Panel (05/29/17 14:17) Uric Acid (05/29/17 14:17) MDM MDM Narrative Course / MDM 37 yr old F s/p @ 39/7 on 05/23, who presents to the ED for 1 day hx of severe SÁNCHEZ, dizziness, and scotomata. 1. preeclampsia w/ severe features -CBC w/ diff wnl -UA neg for protein -CMP-mildly elevated AST and ALTs -Uric acid wnl -Admit to L& D -Started Mg 4g/hr bolus, 2g/hr thereafter -Lipase, ammonia, and hepatitis panel ordered -Repeat LFTs and CBC in [address] Bryant and Kinjal Perry MD R1 May 29, 2017 16:23
[2017-05-29] MEDS: LACTATED RINGER'S 1000 ML INJ 1,000 ML IV SCH (17:05)
[2017-05-29] MEDS: ACETAMINOPHEN 325 MG TAB PO PRN (18:02)
[2017-05-29] MEDS: SODIUM CHLORIDE 0.9% FLUSH 5 ML FLUSH IV FLUSH SCH (21:00)
[2017-05-30] VITALS (13 sets, daily range): BP systolic 117–143; BP diastolic 70–84; PULSE 71–91; RESP 18–20; TEMP 97.7–98.5
[2017-05-30] MEDS: IBUPROFEN 600 MG TAB PO PRN ×2 (01:15→08:01)
[2017-05-30 05:48] LABS: AUTOMATED NEUTROPHIL # 3.1 TH/MM3 (1.8-7.7); BASOPHIL # 0.1 TH/MM3 (0-0.2); BASOPHIL % 1.1 % (0.0-2.0); EOSINOPHIL # 0.3 TH/MM3 (0-0.4); HEMATOCRIT 37.5 % (35.0-46.0); HEMO FLAGS DIFF FINAL; LYMPHOCYTE # 1.7 TH/MM3 (1.0-4.8); MEAN CELL VOLUME 85.4 FL (80.0-100.0); MEAN CORPUSCULAR HEMOGLOBIN 27.5 PG (27.0-34.0); MEAN CORPUSCULAR HGB CONC 32.2 % (32.0-36.0); MONO % 12.8 % (0.0-8.0); NEUT % 52.1 % (16.0-70.0); PLATELET COUNT 231 TH/MM3 (150-450); RED CELL DISTRIBUTION WIDTH 16.2 % (11.6-17.2); WHITE BLOOD COUNT 5.9 TH/MM3 (4.0-11.0)
[2017-05-30 06:00] LABS: INDIRECT BILIRUBIN 0.4 MG/DL (0.0-0.8); TOTAL BILIRUBIN ADULT 0.5 MG/DL (0.2-1.0)
[2017-05-30] MEDS: LACTATED RINGER'S 1000 ML INJ 1,000 ML IV SCH (06:40)
[2017-05-30] MEDS: SODIUM CHLORIDE 0.9% FLUSH 5 ML FLUSH IV FLUSH SCH (08:00)
--- NOTE | 2017-05-30 09:43 | HHI.PR ---
RN OUTPATIENT SURGERY Note Note Subjective: Patient is doing well this AM. Complaining of some mild SÁNCHEZ, but improving with ibuprofen. Left lower left edema has resolved. Patient is eating well and good UOP. She denies N/V, fevers, and abdominal pain. GENERAL: Well-nourished, well-developed patient. Pleasant lady lying in bed. SKIN: Warm and dry. HEAD: Normocephalic. EYES: No scleral icterus. No injection or drainage. CARDIOVASCULAR: Regular rate and rhythm without murmurs, gallops, or rubs. RESPIRATORY: Breath sounds equal bilaterally. No accessory muscle use. GASTROINTESTINAL: Abdomen soft, non-tender, nondistended. No rebound. No HSM. EXTREMITIES: No cyanosis, or edema. NEUROLOGICAL: Awake, alert, and oriented x 3. Non-focal. Vital Signs Date Time Temp Pulse Resp B/P (MAP) Pulse Ox O2 Delivery O2 Flow Rate FiO2 05/30/17 07:54 97.7 18 05/30/17 07:00 75 125/80 (95) 05/29/17 19:40 100 Laboratory Tests Test 05/29/17 14:00 05/29/17 14:27 05/29/17 15:14 05/29/17 17:00 Urine Color LIGHT-YELLOW Urine Turbidity CLEAR Urine pH 7.5 Urine Specific [place] 1.010 Urine Protein NEG mg/dL Urine Glucose (UA) NEG mg/dL Urine Ketones NEG mg/dL Urine Occult Blood TRACE Urine Nitrite NEG Urine Bilirubin NEG Urine Urobilinogen LESS THAN 2.0 MG/DL Urine Leukocyte Esterase NEG Urine RBC 1 /hpf Urine WBC 1 /hpf Urine Mucus FEW /lpf Microscopic Urinalysis Comment CULT NOT INDICATED Blood Urea Nitrogen 10 MG/DL Creatinine 0.72 MG/DL Random Glucose 78 MG/DL Total Protein 6.2 GM/DL Albumin 2.8 GM/DL Calcium Level 8.1 MG/DL Uric Acid 5.4 MG/DL Alkaline Phosphatase 173 U/L Aspartate Amino Transf (AST/SGOT) 168 U/L Alanine Aminotransferase (ALT/SGPT) 265 U/L Total Bilirubin 0.4 MG/DL Sodium Level 141 MEQ/L Potassium Level 3.7 MEQ/L Chloride Level 108 MEQ/L Carbon Dioxide Level 25.1 MEQ/L Anion Gap 8 MEQ/L Estimat Glomerular Filtration Rate 111 ML/MIN White Blood Count 6.5 TH/MM3 Red Blood Count 3.95 MIL/MM3 Hemoglobin 11.2 GM/DL Hematocrit 33.8 % Mean Corpuscular Volume 85.7 FL Mean Corpuscular Hemoglobin 28.3 PG Mean Corpuscular Hemoglobin Concent 33.0 % Red Cell Distribution Width 15.6 % Platelet Count 223 TH/MM3 Mean Platelet Volume 7.9 FL Ammonia 20 MCMOL/L Lipase 87 U/L Test 05/30/17 05:15 White Blood Count 5.9 TH/MM3 Red Blood Count 4.40 MIL/MM3 Hemoglobin 12.1 GM/DL Hematocrit 37.5 % Mean Corpuscular Volume 85.4 FL Mean Corpuscular Hemoglobin 27.5 PG Mean Corpuscular Hemoglobin Concent 32.2 % Red Cell Distribution Width 16.2 % Platelet Count 231 TH/MM3 Mean Platelet Volume 7.6 FL Neutrophils (%) (Auto) 52.1 % Lymphocytes (%) (Auto) 29.0 % Monocytes (%) (Auto) 12.8 % Eosinophils (%) (Auto) 5.0 % Basophils (%) (Auto) 1.1 % Neutrophils # (Auto) 3.1 TH/MM3 Lymphocytes # (Auto) 1.7 TH/MM3 Monocytes # (Auto) 0.8 TH/MM3 Eosinophils # (Auto) 0.3 TH/MM3 Basophils # (Auto) 0.1 TH/MM3 CBC Comment DIFF FINAL Differential Comment Total Bilirubin 0.5 MG/DL Direct Bilirubin 0.1 MG/DL Indirect Bilirubin 0.4 MG/DL Aspartate Amino Transf (AST/SGOT) 105 U/L Alanine Aminotransferase (ALT/SGPT) 237 U/L Alkaline Phosphatase 173 U/L Total Protein 6.4 GM/DL Albumin 2.7 GM/DL Current Medications Medications (Trade) Dose Ordered Sig/Laz Route PRN Reason Start Time Stop Time Status Last Admin Dose Admin Lactated Ringer's 1,000 ml @ 75 mls/hr [id number] IV 05/29/17 17:00 05/30/17 06:40 IV Flush (NS Flush) 2 ml UNSCH PRN IV FLUSH FLUSH AFTER USING IV ACCESS 05/29/17 16:15 IV Flush (NS Flush) 2 ml BID IV FLUSH 05/29/17 21:00 05/29/17 21:00 Magnesium Sulfate 1,000 ml @ 50 mls/hr Q20H IV 05/29/17 16:11 05/30/17 08:27 DC 05/29/17 17:17 Calcium Gluconate (Calcium Gluconate Inj) 1 gm UNSCH PRN IV PUSH Magnesium toxicity 05/29/17 16:15 Acetaminophen (Tylenol) 650 mg Q4H PRN PO PAIN SCALE 1 TO 2 05/29/17 16:15 05/29/17 18:02 Docusate Sodium (Colace) 100 mg BID PRN PO CONSTIPATION 05/29/17 16:15 Zolpidem Tartrate (Ambien) 5 mg HS PRN PO INSOMNIA 05/29/17 16:15 Magnesium Sulfate 100 ml @ 300 mls/hr ONCE ONCE IV 05/29/17 16:15 05/29/17 16:43 DC 05/29/17 17:16 Ibuprofen (Motrin) 600 mg Q6H PRN PO CRAMPING 05/29/17 16:15 05/30/17 08:01 A/P: 37 yr old F s/p @ 39/7 on 05/23, admitted for preeclampsia w/ severe features -Patient's blood pressure improving to 130s/80s -s/p Mg 4g/hr bolus, 2g/hr thereafter. Mg stopped this morning. -CBC w/ diff wnl -UA neg for protein -ASTs and ALT improving and trending down -Uric acid wnl -Lipase and ammonia wnl -Will continue to monitor patient's BP for a few hours. -Will discharge with HTN meds if needed sdw Dr. Bryant and Kinjal Perry MD May 30, 2017 09:43
[2017-05-30] MEDS: ACETAMINOPHEN 325 MG TAB PO PRN (10:40)
[2017-05-30] MEDS ORDERED: traMADol HCL 50 MG TAB PO ONE (10:45)
--- NOTE | 2017-05-30 13:54 | HHI.DCPOC ---
Discharge Care Plan Diagnosis: (1) Severe pre-eclampsia, Report Symptoms to Your Doctor -Temperature above 100.5 degrees -Redness, of incision or excessive or foul smelling drainage -Unusual pain or calf pain -Increased vaginal bleeding -Painful or difficulty urinating -Feelings of extreme sadness or anxiety after 2 weeks Goals to Promote Your Health * To prevent worsening of your condition and complications * To maintain your health at the optimal level Directions to Meet Your Goals Take your medications as prescribed Follow your dietary instruction Follow activity as directed Ensure plenty of rest for recovery Drink fluids for hydration Keep your appointments as scheduled Take your immunizations and boosters as scheduled If your symptoms worsen call your PCP, if no PCP go to Urgent Care Center or Emergency Room Smoking is Dangerous to Your Health. Avoid second hand smoke Call the 24-hour crisis hotline for domestic abuse at Kinjal Bo MD R1 May 30, 2017 13:54
== END 2017-05-30 14:46 | disposition home or self-care (01) | DRG 776 ==
LOC: HOBED 12:49 → OBSVTOIN 16:24 → H2EA 16:24
PROVIDERS: ADMIT Obstetrics & Gynecology Obstetrics; ATTEND Obstetrics & Gynecology Obstetrics
DX: O14.15 Severe pre-eclampsia, complicating the puerperium (principal); R51 Headache
CPT/HCPCS: 80053; 80074; 80076; 81001; 82140; 83690; 84550; 85025; 85027; J3475; J7120

== ENCOUNTER 2017-10-03 06:30 | Emergency (ER) | payer OTHER ==
[~2017-10-03] VITALS: Ht 182.9 cm; Wt 75.0 kg
[~2017-10-03 06:30] MED LIST changes: +DEPO150I IM; -IBUP-232 PO
[2017-10-03 06:36] VITALS: BP 135/76; PULSE 84; RESP 16; TEMP 98.7; O2SAT 100
[2017-10-03] MEDS ORDERED: CEPH-460 PO (06:53)
--- NOTE | 2017-10-03 06:53 | PD ---
HPI Chief Complaint: Laceration/Skin Injury Time Seen by Provider: 06:46 Travel History International Travel<30 days: No Contact w/Intl Traveler<30days: No Traveled to known affect area: No History of Present Illness HPI Patient is a 37-year-old female presenting to the emergency department for evaluation of a laceration to her left first fingertip. 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 EMS evaluated patient on scene, provided wound care and told her she should be evaluated. Patient denies any significant pain. Symptom onset was sudden, symptom severity is mild to moderate, symptoms are exacerbated with touch and movement. Patient is uncertain when her last tetanus vaccine was administered. She reports the pain is a 4 out of 10. PFSH Past Medical History Cancer: No Cardiovascular Problems: No Diabetes: No Endocrine: No Genitourinary: No Hepatitis: No Hiatal Hernia: No Hypertension: Yes Immune Disorder: No Musculoskeletal: No Neurologic: Yes (in childhood) Psychiatric: No Reproductive: No Respiratory: No Thyroid Disease: No Tetanus Vaccination: Unknown ?: Not : 2 Para: 1 Miscarriage: 1 : 0 Dilation and Curettage (D&C): Yes Past Surgical History Abdominal Surgery: No AICD: No Cardiac Surgery: No Ear Surgery: No Endocrine Surgery: No Eye Surgery: No Genitourinary Surgery: No Gynecologic Surgery: Yes (D &E ) Joint Replacement: No Oral Surgery: No Pacemaker: No Thoracic Surgery: No Other Surgery: Yes Social History Alcohol Use: No Tobacco Use: No Substance Use: No Allergies-Medications (Allergen,Severity, Reaction): Coded Allergies: No Known Allergies (Unverified Adverse Reaction, Unknown, 10/03/17) Reported Meds & Prescriptions Reported Meds & Active Scripts Active Depo-Provera Inj (Medroxyprogesterone Inj) 150 Mg/Ml Inj 150 Mg IM Q90D Vitafol Gummies 3.33-0.333-34.8 mg ( Vit W/ Ferric Phospha) 1 Chw Chw 3 Tab PO DAILY Review of Systems Except as stated in HPI: all other systems reviewed are Neg Skin: Positive Other (Laceration) Physical Exam Narrative GENERAL: Well-developed, well-nourished, alert female. Presenting in no acute distress. SKIN: Warm and dry. 0.5 cm skin avulsion to left first fingertip. HEAD: Normocephalic. EYES: No scleral icterus. No injection or drainage. NECK: Supple, trachea midline. No JVD or lymphadenopathy. CARDIOVASCULAR: Regular rate and rhythm without murmurs, gallops, or rubs. RESPIRATORY: Breath sounds equal bilaterally. No accessory muscle use. GASTROINTESTINAL: Abdomen soft, non-tender, nondistended. MUSCULOSKELETAL: No cyanosis, or edema. BACK: Nontender without obvious deformity. No CVA tenderness. Data Data Last Documented VS Vital Signs Date Time Temp Pulse Resp B/P (MAP) Pulse Ox O2 Delivery O2 Flow Rate FiO2 10/03/17 06:36 98.7 84 16 135/76 (95) 100 Orders Orders Wound Care (10/03/17 06:46) Tetanus/Diphtheria Tox Adult (Tetanus/Di (10/03/17 07:00) Support Splint (10/03/17 06:46) MDM Medical Decision Making Medical Screen Exam Complete: Yes Emergency Medical Condition: Yes Interpretation(s) Vital Signs Date Time Temp Pulse Resp B/P (MAP) Pulse Ox O2 Delivery O2 Flow Rate FiO2 10/03/17 06:36 98.7 84 16 135/76 (95) 100 Differential Diagnosis Laceration versus abrasion versus avulsion versus other Narrative Course Patient is a 37-year-old female presenting for evaluation of a skin avulsion to her left first fingertip. Patient is neurovascularly intact, there are no focal deficits. Patient will be provided with wound care, tetanus vaccine will be updated. Patient was educated on how to care for wound. She is advised to keep her finger in the cage to prevent bumping or hitting it causing it to bleed. She was advised that the skin will regrow however it may take some time. She was educated on the signs and symptoms of infection. Patient verbalized understanding of these instructions. She is encouraged to follow-up with primary doctor or return to emergency department for any new or worsening symptoms. She verbalized understanding. Patient stable for discharge. Diagnosis Primary Impression: Fingertip avulsion Qualified Codes: S61.209A - Unspecified open wound of unspecified finger without damage to nail, initial encounter Referrals: Primary Care Physician Patient Instructions: General Instructions, Skin Avulsion (ED) Departure Forms: Tests/Procedures, Work Release Special Instructions: No excessive use of left hand, left hand should not get submerged in water until well healed. Additional Instructions: Keep wound clean and dry, wash with soap and water only and gently. Do not use peroxide Change dressing daily, and as needed for soiling. Keep finger and finger cage to prevent bumping or hitting which would cause it to bleed. Return to emergency department immediately for any new or worsening symptoms. Follow-up with your primary doctor Med/Other Pt SpecificInfo: Prescription(s) given Scripts Cephalexin (Keflex) 500 Mg Cap 500 MG PO Q12H for Infection for 5 Days, #10 CAP 0 Refills Prov: Amy Rosen 10/03/17 Disposition: 01 DISCHARGE HOME Condition: Stable Amy Rosen Oct 03, 2017 06:53
[2017-10-03] MEDS ORDERED: TETANUS/DIPHTHERIA TOXOID ADULT 0.5 ML VIAL IM ONE (07:00)
== END 2017-10-03 07:49 | disposition home or self-care (01) ==
LOC: NEPD 06:30
DX: S61.002A Unspecified open wound of left thumb without damage to nail, initial encounter (principal); W26.8XXA Contact with other sharp object(s), not elsewhere classified, initial encounter; Y99.0 Civilian activity done for income or pay; I10 Essential (primary) hypertension; Z23 Encounter for immunization
CPT/HCPCS: 90471; 90714

== ENCOUNTER 2017-10-03 10:27 | Emergency (ER) | payer OTHER ==
[~2017-10-03] VITALS: Ht 170.2 cm; Wt 80.0 kg
[~2017-10-03 10:27] MED LIST changes: +CEPH-460 PO
[2017-10-03 10:49] VITALS: BP 143/82; PULSE 88; RESP 15; TEMP 98.2; O2SAT 100
--- NOTE | 2017-10-03 11:15 | PD ---
HPI Chief Complaint: Laceration/Skin Injury Time Seen by Provider: 11:10 Travel History International Travel<30 days: No Contact w/Intl Traveler<30days: No Traveled to known affect area: No History of Present Illness HPI 37-year-old female presents to the emergency room for evaluation of bleeding wound to the left thumb. Patient came earlier today after she accidentally sustained an avulsion injury to the tip of the left thumb. She was updated on tetanus and the wound was dressed. States after leaving here, the wound continued to bleed. She was concerned that the amount it was bleeding. Denies any other complaints. She is not on blood thinners. PFSH Past Medical History Cancer: No Cardiovascular Problems: No Diabetes: No Endocrine: No Genitourinary: No Hepatitis: No Hiatal Hernia: No Hypertension: Yes Immune Disorder: No Musculoskeletal: No Neurologic: Yes (in childhood) Psychiatric: No Reproductive: No Respiratory: No Thyroid Disease: No ?: Not : 2 Para: 1 Miscarriage: 1 : 0 Dilation and Curettage (D&C): Yes Past Surgical History Abdominal Surgery: No AICD: No Cardiac Surgery: No Ear Surgery: No Endocrine Surgery: No Eye Surgery: No Genitourinary Surgery: No Gynecologic Surgery: Yes (D &E ) Joint Replacement: No Oral Surgery: No Pacemaker: No Thoracic Surgery: No Other Surgery: Yes Social History Alcohol Use: No Tobacco Use: No Substance Use: No Allergies-Medications (Allergen,Severity, Reaction): Coded Allergies: No Known Allergies (Unverified Adverse Reaction, Unknown, 10/03/17) Reported Meds & Prescriptions Reported Meds & Active Scripts Active Keflex (Cephalexin) 500 Mg Cap 500 Mg PO Q12H 5 Days Depo-Provera Inj (Medroxyprogesterone Inj) 150 Mg/Ml Inj 150 Mg IM Q90D Vitafol Gummies 3.33-0.333-34.8 mg ( Vit W/ Ferric Phospha) 1 Chw Chw 3 Tab PO DAILY Review of Systems Except as stated in HPI: all other systems reviewed are Neg Physical Exam Narrative GENERAL: Well-nourished, well-developed female no acute distress. Afebrile. Ambulatory. SKIN: Focused skin assessment warm/dry. There is a 1 cm superficial avulsion to the left thumb. There is a large blood clot overlying the avulsion with no active bleeding. No evidence of infection. HEAD: Normocephalic. EYES: No scleral icterus. No injection or drainage. NECK: Supple, trachea midline. No JVD or lymphadenopathy. CARDIOVASCULAR: Regular rate and rhythm without murmurs, gallops, or rubs. RESPIRATORY: Breath sounds equal bilaterally. No accessory muscle use. MUSCULOSKELETAL: No cyanosis, or edema. Data Data Last Documented VS Vital Signs Date Time Temp Pulse Resp B/P (MAP) Pulse Ox O2 Delivery O2 Flow Rate FiO2 10/03/17 10:49 98.2 88 15 143/82 (102) 100 MDM Medical Decision Making Medical Screen Exam Complete: Yes Emergency Medical Condition: Yes Medical Record Reviewed: Yes Differential Diagnosis Avulsion, bleeding injury, laceration, abrasion Narrative Course 37-year-old female presents to the emergency room for evaluation of bleeding wound. She came earlier today for the same but was concerned because the wound continued to bleed. She is not on blood thinners. Denies any other complaints. Physical exam reveals an avulsion to the left thumb that is nonbleeding. Scabs in place. No evidence of infection. Patient was reassured. Told that avulsions tend to bleed a lot by her body while clot, as it has. She was instructed on and discharged with wound care instructions. Told to follow-up with PCP return for worsening symptoms. She understands and agrees to plan. Diagnosis Primary Impression: Fingertip avulsion Qualified Codes: S61.209A - Unspecified open wound of unspecified finger without damage to nail, initial encounter Referrals: Primary Care Physician Additional Instructions: Keep dressing on for 24 hours. After 24 hours, change the dressing the same way that the nurse showed you. Then change it daily. Wash gently with soap and water and apply triple antibiotic ointment with every change. Follow-up with PCP. Return for worsening symptoms. Disposition: 01 DISCHARGE HOME Condition: Stable Glenda Watson Oct 03, 2017 11:15
== END 2017-10-03 11:30 | disposition home or self-care (01) ==
LOC: NEPK 10:27
DX: S61.002A Unspecified open wound of left thumb without damage to nail, initial encounter (principal); I10 Essential (primary) hypertension; X58.XXXA Exposure to other specified factors, initial encounter; Y99.0 Civilian activity done for income or pay
CPT/HCPCS: 99281

== ENCOUNTER 2017-11-12 14:42 | Emergency (ER) | payer SELFPAY ==
[~2017-11-12] VITALS: Ht 182.9 cm; Wt 100.0 kg
[2017-11-12 15:07] VITALS: BP 133/82; PULSE 141; RESP 22; TEMP 100.8; O2SAT 100
[2017-11-12] MEDS ORDERED: ACETAMINOPHEN 325 MG TAB PO ONE (15:30)
[2017-11-12] MEDS ORDERED: SODIUM CHLORIDE 0.9% FLUSH 10 ML FLUSH IVF PRN (15:30)
[2017-11-12] MEDS ORDERED: KETOROLAC TROMETHAMINE 30 MG/ML (IVP) VIAL IV PUSH ONE (15:30)
[2017-11-12] MEDS ORDERED: SODIUM CHLOR 0.9% 1000 ML INJ 1,000 ML IV ONE ×2 (15:30→17:15)
--- NOTE | 2017-11-12 15:38 | PD ---
HPI Chief Complaint: Cold / Flu Symptoms Time Seen by Provider: 15:17 Travel History International Travel<30 days: No Contact w/Intl Traveler<30days: No History of Present Illness HPI 37 year old female presents to the emergency department for evaluation of flu- like symptoms for 4 days. She reports sinus pressure, headache, congestion, sore throat, cough, sneezing, congestion, fever, body aches. She currently rates her pain 8/10, aching. Patient denies any chest pain or SOB. She states she has some LLQ abdominal pain that started yesterday. She denies any urinary symptoms. She denies any chance of . She states she is on depo. She has no chronic medical problems. Patient denies any abnormal vaginal discharge or risk of STDs. Patient denies any nausea, vomiting, diarrhea. She does report decreased appetite. Patient states she feels like she has a sinus infection. She was seen by her PCP 4 days ago and was prescribed a Medrol Dosepak. Moderate severity. PFSH Past Medical History Cancer: No Cardiovascular Problems: No Diabetes: No Endocrine: No Genitourinary: No Hepatitis: No Hiatal Hernia: No Hypertension: Yes Immune Disorder: No Musculoskeletal: No Neurologic: Yes (in childhood) Psychiatric: No Reproductive: No Respiratory: No Thyroid Disease: No ?: Not LMP: DEPO : 2 Para: 1 Miscarriage: 1 : 0 Dilation and Curettage (D&C): Yes Past Surgical History Abdominal Surgery: No AICD: No Cardiac Surgery: No Ear Surgery: No Endocrine Surgery: No Eye Surgery: No Genitourinary Surgery: No Gynecologic Surgery: Yes (D &E ) Joint Replacement: No Oral Surgery: No Pacemaker: No Thoracic Surgery: No Other Surgery: Yes Social History Alcohol Use: No Tobacco Use: No Substance Use: No Allergies-Medications (Allergen,Severity, Reaction): Coded Allergies: No Known Allergies (Unverified Adverse Reaction, Unknown, 11/12/17) Reported Meds & Prescriptions Reported Meds & Active Scripts Active Depo-Provera Inj (Medroxyprogesterone Inj) 150 Mg/Ml Inj 150 Mg IM Q90D Review of Systems Except as stated in HPI: all other systems reviewed are Neg Physical Exam Narrative GENERAL: Well developed, well nourished female patient, temp of 100.8. SKIN: Warm and dry. HEAD: Normocephalic. Atraumatic. Patient has tenderness over bilateral maxillary sinuses ENT: Mucosa pink and moist. No erythema or exudates. No uvular edema. No uvular , palatal, or tonsillar deviation. Airway patent. Nasal turbinates appear normal without nasal blood, purulent drainage or septal hematoma. EYES: No scleral icterus. No injection or drainage. Bilateral tympanic membranes are clear without erythema or perforation and with normal landmarks. NECK: Supple, trachea midline. No JVD or lymphadenopathy. No nuchal rigidity. No meningeal signs. CARDIOVASCULAR: Regular rhythm without murmurs, gallops, or rubs, patient is tachycardic with HR in the 130's. RESPIRATORY: Breath sounds equal bilaterally. No accessory muscle use. Lung sounds are clear to auscultation. GASTROINTESTINAL: Abdomen soft, non-tender, nondistended. No abdominal tenderness to palpation. MUSCULOSKELETAL: No cyanosis, or edema. BACK: Nontender without obvious deformity. No CVA tenderness. Data Data Last Documented VS Vital Signs Date Time Temp Pulse Resp B/P (MAP) Pulse Ox O2 Delivery O2 Flow Rate FiO2 11/12/17 17:02 110 18 116/73 (87) 99 Room Air 11/12/17 15:07 100.8 Orders Orders Electrocardiogram (11/12/17 15:25) Complete Blood Count With Diff (11/12/17 15:25) Comprehensive Metabolic Panel (11/12/17 15:25) Influenzae A/B Antigen (11/12/17 15:25) Chest, Single Ap (11/12/17 15:25) Ecg Monitoring (11/12/17 15:25) Iv Access Insert/Monitor (11/12/17 15:25) Oximetry (11/12/17 15:25) Sodium Chloride 0.9% Flush (Ns Flush) (11/12/17 15:30) Urinalysis - C+S If Indicated (11/12/17 15:25) Lipase (11/12/17 15:25) Ed Urine Pregnancytest Poc (11/12/17 15:25) Sodium Chlor 0.9% 1000 Ml Inj (Ns 1000 M (11/12/17 15:30) Ketorolac Inj (Toradol Inj) (11/12/17 15:30) Acetaminophen (Tylenol) (4/8/18 15:30) Sodium Chlor 0.9% 1000 Ml Inj (Ns 1000 M (11/12/17 17:15) Labs Laboratory Tests Test 11/12/17 15:45 11/12/17 15:55 Urine Color YELLOW Urine Turbidity CLEAR Urine pH 6.5 Urine Specific [place] 1.018 Urine Protein TRACE mg/dL Urine Glucose (UA) NEG mg/dL Urine Ketones NEG mg/dL Urine Occult Blood TRACE Urine Nitrite NEG Urine Bilirubin NEG Urine Urobilinogen LESS THAN 2.0 MG/DL Urine Leukocyte Esterase SMALL Urine RBC LESS THAN 1 /hpf Urine WBC 2 /hpf Urine Squamous Epithelial Cells 8 /hpf Urine Mucus FEW /lpf Microscopic Urinalysis Comment CULT NOT INDICATED White Blood Count 7.3 TH/MM3 Red Blood Count 4.81 MIL/MM3 Hemoglobin 15.9 GM/DL Hematocrit 44.3 % Mean Corpuscular Volume 92.0 FL Mean Corpuscular Hemoglobin 33.0 PG Mean Corpuscular Hemoglobin Concent 35.9 % Red Cell Distribution Width 13.8 % Platelet Count 248 TH/MM3 Mean Platelet Volume 7.7 FL Neutrophils (%) (Auto) 70.4 % Lymphocytes (%) (Auto) 16.0 % Monocytes (%) (Auto) 11.1 % Eosinophils (%) (Auto) 1.9 % Basophils (%) (Auto) 0.6 % Neutrophils # (Auto) 5.1 TH/MM3 Lymphocytes # (Auto) 1.2 TH/MM3 Monocytes # (Auto) 0.8 TH/MM3 Eosinophils # (Auto) 0.1 TH/MM3 Basophils # (Auto) 0.0 TH/MM3 CBC Comment DIFF FINAL Differential Comment Blood Urea Nitrogen 6 MG/DL Creatinine 0.95 MG/DL Random Glucose 119 MG/DL Total Protein 8.6 GM/DL Albumin 4.2 GM/DL Calcium Level 8.9 MG/DL Alkaline Phosphatase 94 U/L Aspartate Amino Transf (AST/SGOT) 69 U/L Alanine Aminotransferase (ALT/SGPT) 87 U/L Total Bilirubin 0.4 MG/DL Sodium Level 138 MEQ/L Potassium Level 3.4 MEQ/L Chloride Level 104 MEQ/L Carbon Dioxide Level 25.8 MEQ/L Anion Gap 8 MEQ/L Estimat Glomerular Filtration Rate 81 ML/MIN Lipase 93 U/L [facility] Medical Decision Making Medical Screen Exam Complete: Yes Emergency Medical Condition: Yes Medical Record Reviewed: Yes Interpretation(s) chest x-ray - CONCLUSION: No acute disease. Differential Diagnosis influenza vs. sinusitis vs. viral syndrome vs. pneumonia vs. UTI vs. electrolyte abnormality vs. dehydration Narrative Course 37 year old female presents to the emergency department for evaluation of flu- like symptoms for 3 days. She is febrile with a temp of 100.8 and tachycardic. Patient appears well on exam. Abdominal exam is benign. IV access is obtained. CBC, CMP, Lipase, UA, UPT are ordered and pending. Chest x-ray is ordered and pending. Influenza swab is ordered and pending. Patient is given Tylenol 650 mg PO, Ketorolac 30 mg IV, NS 1 liter IV bolus. EKG shows sinus tachycardia, HR 120, no acute ST changes. CBC shows no acute abnormality. CMP shows AST 69, ALT 87, no acute abnormality. Lipase is 93. UA is negative for acute infection. UPT is negative. Influenza is negative. Chest x-ray shows no acute disease. Upon reassessment, patient states her body aches are gone and she is feeling much better. 2nd L NS is ordered as patient is still slightly tachycardic with HR 110. HR is 103. Patient is stable for discharge home. Patient will be discharged with a prescription for Augmentin as she has sinus tenderness/pressure/fever. Diagnosis Primary Impression: Acute sinusitis Qualified Codes: J01.90 - Acute sinusitis, unspecified Referrals: Primary Care Physician call for appointment Patient Instructions: General Instructions, Sinusitis (ED) Departure Forms: School Release, Return to School Date: Nov 15, 2017 Tests/Procedures, Work Release Enter return to work date: Nov 15, 2017 Additional Instructions: Take antibiotic as directed until gone. Drink plenty of fluids. Over the counter Tylenol every 4 hours as needed for fever/pain. Over the counter Ibuprofen every 6-8 hours as needed for fever/pain. Rest. Follow up with your primary care physician. Return to the emergency department for any acute, worsening of symptoms. Med/Other Pt SpecificInfo: Prescription(s) given Scripts Amoxicillin-Clavulanate (Augmentin) 875-125 Mg Tab 1 TAB PO BID for Infection for 10 Days, #20 TAB 0 Refills Prov: Angelique Velasquez 11/12/17 Disposition: DISCHARGE HOME Condition: Stable Angelique Velasquez Nov 12, 2017 15:38
--- NOTE | 2017-11-12 15:50 | RADRPT ---
EXAM DATE/TIME: 11/12/2017 15:31 [facility] COMPARISON: No previous studies available for comparison. INDICATIONS : Short of breath., flu like symptoms. MEDICAL HISTORY : None. SURGICAL HISTORY : None. ENCOUNTER: Initial encounter ACUITY: 1 day PAIN SCORE: 0/10 LOCATION: Bilateral chest FINDINGS: A single view of the chest demonstrates the lungs to be symmetrically aerated without evidence of mas s, infiltrate or effusion. The cardiomediastinal contours are unremarkable. Osseous structures are intact. CONCLUSION: No acute disease. Osmin Musa MD on November 12, 2017 at 15:46 Board Certified Radiologist. This report was verified electronically.
[2017-11-12 16:07] VITALS: BP 130/77; PULSE 116; RESP 18; O2SAT 99
[2017-11-12 16:13] LABS: AUTOMATED NEUTROPHIL # 5.1 TH/MM3 (1.8-7.7); BASOPHIL % 0.6 % (0.0-2.0); EOSINOPHIL # 0.1 TH/MM3 (0-0.4); EOSINOPHIL % 1.9 % (0.0-4.0); HEMATOCRIT 44.3 % (35.0-46.0); HEMOGLOBIN 15.9 GM/DL (11.6-15.3); LYMPHOCYTE # 1.2 TH/MM3 (1.0-4.8); MEAN CORPUSCULAR HGB CONC 35.9 % (32.0-36.0); MEAN PLATELET VOLUME 7.7 FL (7.0-11.0); MONO % 11.1 % (0.0-8.0); MONOCYTE # 0.8 TH/MM3 (0-0.9); NEUT % 70.4 % (16.0-70.0); PLATELET COUNT 248 TH/MM3 (150-450); RED BLOOD COUNT 4.81 MIL/MM3 (4.00-5.30); RED CELL DISTRIBUTION WIDTH 13.8 % (11.6-17.2); WHITE BLOOD COUNT 7.3 TH/MM3 (4.0-11.0)
[2017-11-12 16:20] LABS: BILIRUBIN, URINE NEG (NEG); BLOOD, URINE TRACE (NEG); GLUCOSE,URINE NEG (NEG); KETONE, URINE NEG (NEG); MUCUS URINE FEW /lpf (OCC); NITRITE,URINE NEG (NEG); PH, URINE 6.5 (5.0-8.5); SQUAMOUS EPITHELIAL CELL URINE 8 /hpf (0-5); URINE COLOR YELLOW (YELLW/STRAW); URINE LEUKOCYTE ESTERASE SMALL (NEG)
[2017-11-12 16:45] LABS: ALBUMIN 4.2 GM/DL (3.4-5.0); ALT (GPT) 87 U/L (10-53); AST (GOT) 69 U/L (15-37); BICARBONATE 25.8 MEQ/L (21.0-32.0); BLOOD UREA NITROGEN 6 MG/DL (7-18); CALCIUM 8.9 MG/DL (8.5-10.1); CHLORIDE 104 MEQ/L (98-107); CREATININE 0.95 MG/DL (0.50-1.00); GLOMERULAR FILTRATION RATE 81 ML/MIN (>89); GLUCOSE,RANDOM 119 MG/DL (74-106); SODIUM (NA) 138 MEQ/L (136-145)
[2017-11-12 16:47] LABS: ALKALINE PHOSPHATASE 94 U/L (45-117); TOTAL BILIRUBIN ADULT 0.4 MG/DL (0.2-1.0); TOTAL PROTEIN 8.6 GM/DL (6.4-8.2)
[2017-11-12 17:02] VITALS: BP 116/73; PULSE 110; RESP 18; O2SAT 99
[2017-11-12] MEDS ORDERED: AUGM875T3 PO (18:00)
[2017-11-12 19:24] VITALS: BP 113/63; PULSE 89; RESP 20; O2SAT 96
--- NOTE | 2017-11-13 15:20 | EKG ---
Date Performed: 11/12/2017 Time Performed: 16:03:15 PTAGE: 37 years EKG: SINUS TACHYCARDIA ABNORMAL RHYTHM ECG NO PREVIOUS TRACING DOCTOR: Migdalia Vargas Interpretating Date/Time 11/13/2017 15:13:24
== END 2017-11-12 20:16 | disposition home or self-care (01) ==
LOC: NEPC 14:42
DX: J01.90 Acute sinusitis, unspecified (principal); R00.0 Tachycardia, unspecified
CPT/HCPCS: 71045; 80053; 81001; 83690; 84703; 85025; 87804; 93005; 96361; 96374; 99285; J1885; J7030